=== PATIENT | male | born 1990 | race Caucasian/White ===

== ENCOUNTER 2016-04-25 02:50 | Emergency (ER) | payer OTHER ==
[~2016-04-25] VITALS: Ht 182.9 cm; Wt 190.0 kg
[~2016-04-25 02:50] MED LIST: Z.0.NO CURRENT MEDS
[2016-04-25 02:53] VITALS: BP 139/67; PULSE 98; RESP 18; TEMP 98.7; O2SAT 98
--- NOTE | 2016-04-25 03:52 | PD ---
HPI Chief Complaint: Injury Time Seen by Provider: 03:35 Travel History International Travel<30 days: No Contact w/Intl Traveler<30days: No Traveled to known affect area: No History of Present Illness HPI 25-year-old [id number]-[id number] white male presents to emergency Department with complaints of left elbow pain for 2 days. He states that he had moved several cases of water when he developed pain in his left elbow. He states that the pain as per grossly worsened and now has moved down into his forearm. He cannot move his arm due to pain. He states it's moderate but can be severe. He denies any direct trauma. He did not feel anything crack or pop. He denies any numbness or tingling. No prior injury. He's been in his normal saline prior. He has pain with supination and pronation as well as extension. He feels comfortable holding his arm against his body and abduction. PFSH Past Medical History Narrative Medical GERD Diminished Hearing: No Tetanus Vaccination: < 5 Years Past Surgical History Surgical History: No Previous Surgery Social History Alcohol Use: No Tobacco Use: No Substance Use: No Allergies-Medications (Allergen,Severity, Reaction): Coded Allergies: No Known Allergies (Verified , 04/25/16) Reported Meds & Prescriptions Reported Meds & Active Scripts Active Reported No Current Meds (Miscellaneous Medication) Misc Review of Systems Except as stated in HPI: all other systems reviewed are Neg Musculoskeletal: Positive: Myalgias, Arthralgias, Limited ROM, Weakness, Edema , Pain Neurologic: No: Syncope, Coordination Problem, Paresthesia Physical Exam Narrative GENERAL: This is a well-nourished, well-developed patient, in no apparent distress. SKIN: No rashes, ecchymoses or lesions. Warm and dry. HEAD: Atraumatic. Normocephalic. EYES: PERRL, EOMI, no discharge or injection. No scleral icterus. EARS: Clear NOSE: Nasal turbinates appear normal. THROAT: Mucosa pink and moist. Airway patent. NECK: Trachea midline. supple, moves head freely. LUNGS: Clear to auscultation. CV: Regular in rhythm. ABDOMEN: Soft nontender. EXT: No clubbing cyanosis. Examination left upper extremity reveals mild joint effusion/swelling. He has significant decreased range of motion globally. He cannot extend his arm at the elbow. He cannot supinate and pronate. There is no pain in the shoulder, wrist or hand. He has intact median/ulnar/radial nerves. The skin is intact. Data Data Last Documented VS Vital Signs Date Time Temp Pulse Resp B/P Pulse Ox O2 Delivery O2 Flow Rate FiO2 04/25/16 02:53 98.7 98 18 139/67 98 Room Air Orders Elbow, Complete (4 Vws) (04/25/16 03:11) Ice/Cold Pack (04/25/16 03:11) MDM Medical Decision Making Medical Screen Exam Complete: Yes Emergency Medical Condition: Yes Medical Record Reviewed: Yes Interpretation(s) Left elbow: Positive anterior posterior fat pad. No obvious bony injury. Differential Diagnosis MDM: High Differential diagnoses: Fracture, sprain, strain, dislocation, contusion, neurovascular injury Narrative Course X-ray of the elbow reveals no obvious fracture but patient has a positive fat pad sign. I suspect he may have a nondisplaced fracture or a ligament injury. The patient is given a sling for comfort. Ice pack. Prescription for Lortab. The patient is given 1 Lortab 5 mg by mouth and Motrin 800 mg by mouth at time of discharge. This is left occult elbow fracture Diagnosis Primary Impression: Occult fracture of left elbow Patient Instructions: General Instructions, Narcotic given in the ED Additional Instructions: Rest. Elevation. Sling. Ice. Motrin and Lortab. Follow-up with your doctor on Wednesday. Follow-up with orthopedic in one week. Return to the ER for any problems. Med/Other Pt SpecificInfo: Prescription(s) given Disposition: DISCHARGE HOME Condition: Stable Scar Kelly Apr 25, 2016 03:52
[2016-04-25] MEDS ORDERED: IBUP800T23 PO (03:54)
[2016-04-25] MEDS ORDERED: HYDR-3533 PO (03:54)
[2016-04-25] MEDS ORDERED: IBUPROFEN 800 MG TAB PO ONE (04:00)
[2016-04-25] MEDS ORDERED: ACETAMINOPHEN/HYDROcodone 325 MG/5 MG TAB PO ONE (04:00)
--- NOTE | 2016-04-25 04:06 | RADRPT ---
EXAM DATE/TIME: 04/25/2016 03:24 [facility] COMPARISON: No previous studies available for comparison. INDICATIONS : Left elbow pain. MEDICAL HISTORY : None. SURGICAL HISTORY : None. ENCOUNTER: Initial ACUITY: 1 day PAIN SCORE: 8/10 LOCATION: Left elbow. FINDINGS: 4 views of the left elbow demonstrate anterior and posterior fat pads indicating a joint. Effusion. N o definite fracture is seen. The radial head is not well-visualized on any of the projections. No dis location is present. No acute soft tissue abnormality is identified. CONCLUSION: There is a elbow joint effusion present. I do not see a fracture but the radial head is not well-visu alized on any of the projections. Suggest correlation with physical examination to evaluate for occul t radial head fracture. Pritesh Stallings MD on April 25, 2016 at 4:02 Board Certified Radiologist. This report was verified electronically.
== END 2016-04-25 04:10 | disposition home or self-care (01) ==
LOC: NEPB 02:50
DX: S42.402A Unspecified fracture of lower end of left humerus, initial encounter for closed fracture (principal); X50.0XXA Overexertion from strenuous movement or load, initial encounter; Y93.89 Activity, other specified
CPT/HCPCS: 73080; 99283

== ENCOUNTER 2016-05-20 00:44 | Emergency (ER) | payer OTHER ==
[~2016-05-20] VITALS: Ht 182.9 cm; Wt 182.0 kg
[~2016-05-20 00:44] MED LIST changes: +HYDR-3533 PO; +IBUP800T23 PO
[2016-05-20 00:47] VITALS: BP 168/102; PULSE 98; RESP 18; TEMP 97.7; O2SAT 99
[2016-05-20] MEDS ORDERED: OMEP20TA PO (00:53)
--- NOTE | 2016-05-20 02:28 | PD ---
HPI Chief Complaint: Cold / Flu Symptoms Time Seen by Provider: 02:24 Travel History International Travel<30 days: No Contact w/Intl Traveler<30days: No Traveled to known affect area: No History of Present Illness HPI 25-year-old white male presents to the department with a one-week history of cough, congestion, colored sputum, pleuritic chest wall pain, shortness of breath, wheezing, runny nose, sore throat and general malaise. He denies any nausea vomiting. No abdominal pain or diarrhea. No dysuria or frequency. No rashes or lesions. He denies diabetes and hypertension. [facility] Past Medical History Medical History: Denies Significant Hx Diminished Hearing: No Tetanus Vaccination: < 5 Years Influenza Vaccination: No Past Surgical History Surgical History: No Previous Surgery Social History Alcohol Use: Yes Tobacco Use: Yes Substance Use: No Allergies-Medications (Allergen,Severity, Reaction): Coded Allergies: No Known Allergies (Verified , 05/20/16) Reported Meds & Prescriptions Reported Meds & Active Scripts Active Reported Omeprazole 20 Mg Tab 20 Mg PO DAILY Review of Systems Except as stated in HPI: all other systems reviewed are Neg Physical Exam Narrative GENERAL: Well-developed, morbidly obese in no acute distress. Nontoxic appearing. HEAD: Normocephalic, atraumatic. EYES: Pupils equal round and reactive. Extraocular motions intact. No scleral icterus. No injection or drainage. ENT: TMs clear without erythema. The external auditory canals clear. Nose: clear . Posterior pharynx is pink and moist. No tonsillar edema or exudate. Uvula midline. Airway patent. NECK: Trachea midline.Supple, nontender, moves head freely. No central bony tenderness or spasm. CARDIOVASCULAR: Regular rate and rhythm without murmurs, gallops, or rubs. RESPIRATORY: Few scattered rhonchi. GASTROINTESTINAL: Abdomen soft, non-tender, nondistended. No hepato-splenomegaly , or palpable masses. No guarding. EXTREMITIES: No clubbing, cyanosis, or edema. No joint tenderness, effusion, or edema noted. BACK: Nontender without deformity or crepitance. No flank tenderness. Data Data Last Documented VS Vital Signs Date Time Temp Pulse Resp B/P Pulse Ox O2 Delivery O2 Flow Rate FiO2 05/20/16 00:54 16 Room Air 05/20/16 00:47 97.7 98 168/102 99 MDM Medical Decision Making Medical Screen Exam Complete: Yes Emergency Medical Condition: Yes Medical Record Reviewed: Yes Differential Diagnosis MDM: High Differential diagnoses: Pneumonia, bronchitis, URI, asthma, RAD, legionnaire's disease, SARS, ARDS, influenza, bronchiolitis, RSV,PE,CHF Narrative Course This is bronchitis RAD Diagnosis Primary Impression: bronchitis with RAD Patient Instructions: General Instructions Additional Instructions: Rest. Increase fluids. Tylenol and Advil. Robitussin-DM. Zithromax, prednisone, and albuterol. Followup with your Dr. in one week. Return to the ER for any problems. Med/Other Pt SpecificInfo: Prescription(s) given Disposition: DISCHARGE HOME Condition: Stable Scar Kelly May 20, 2016 02:28
[2016-05-20] MEDS ORDERED: PRED-503 PO (02:29)
[2016-05-20] MEDS ORDERED: ZITH250T PO (02:29)
[2016-05-20] MEDS ORDERED: ALBU6.7H INH (02:29)
[2016-05-20] MEDS ORDERED: predniSONE 20 MG TAB PO ONE (02:30)
[2016-05-20] MEDS ORDERED: AZITHROMYCIN 250 MG TAB PO ONE (02:30)
== END 2016-05-20 02:37 | disposition home or self-care (01) ==
LOC: NEPB 00:44
DX: J40 Bronchitis, not specified as acute or chronic (principal); J45.909 Unspecified asthma, uncomplicated; F17.210 Nicotine dependence, cigarettes, uncomplicated
CPT/HCPCS: 99283; J7512